=== PATIENT | female | born 1980 ===

== ENCOUNTER → 2019-12-18 | Outpatient (CLI) | payer OTHER ==
[~2019-12-18] MED LIST: CYCL10 PO; DIPH50; HYDACE5 PO; IBUP800 PO; NAPR500 PO; Percocet 5-3251 EACH PO; RXCYCL10 PO; Verotin-Gr Cap1 EACH PO
[2019-12-20 01:09] LABS: CHLAMYDIA TRACHOMATIS, NAA Negative (Negative); NEISSERIA GONORRHOEAE, NAA Negative (Negative)
== END | disposition home or self-care (01) ==
LOC: LAB 10:42 → LAB SHORT 10:42
PROVIDERS: Obstetrics & Gynecology
DX: O09.523 Supervision of elderly multigravida, third trimester (principal); Z3A.36 36 weeks gestation of pregnancy
CPT/HCPCS: 87081; 87491; 87591; 87653

== ENCOUNTER 2019-12-31 02:09 | Inpatient (IN) | payer OTHER ==
[~2019-12-31] VITALS: Ht 165.1 cm; Wt 90.0 kg
[2019-12-31] MEDS ORDERED: LABE100 PO (02:57)
[2019-12-31] MEDS ORDERED: ACYC400 PO (02:59)
[2019-12-31 03:29] LABS: BASOPHILS ABSOLUTE AUTO 0.05 K/mm3 (0.00-0.23); BASOPHILS PERCENT AUTO 0 % (0-2); EOSINOPHILS ABSOLUTE AUTO 0.19 K/mm3 (0.00-0.68); EOSINOPHILS PERCENT AUTO 2 % (0-6); Hematocrit 35.1 % (33.0-51.0); Hemoglobin 11.4 g/dL (11.5-16.0); IMMATURE GRAN ABSOLUTE AUTO 0.04 K/mm3 (0.00-0.10); IMMATURE GRAN PERCENT AUTO 0 % (0-1); LYMPHOCYTES PERCENT AUTO 19 % (21-46); MONOCYTES ABSOLUTE AUTO 0.61 K/mm3 (0.16-1.47); MONOCYTES PERCENT AUTO 5 % (4-13); Mean Corpuscular HGB 28.6 pg (26.0-34.0); Mean Corpuscular HGB Conc 32.5 g/dL (31.5-36.5); Mean Corpuscular Volume 88 fL (80-100); Mean Platelet Volume 11.5 fL (9.1-12.4); NEUTROPHILS PERCENT AUTO 74 % (41-73); Platelet Count 176 K/mm3 (150-400); RDW Standard Deviation 45.3 fL (35.1-46.3); Red Blood Cell Count 3.98 M/mm3 (3.80-5.20); White Blood Cell Count 11.89 K/mm3 (4.00-11.30)
[2019-12-31 10:13] LABS: PCO2 Cord - Arterial 47.6 mmHg (40-50); PO2 Cord - Arterial 15.1 mmHg (16-20); pH Cord - Arterial 7.27 (7.28-7.35)
[2019-12-31 10:16] LABS: PCO2 Cord - Venous 39.9 mmHg (40-50); PO2 Cord - Venous 26.4 mmHg (28-32); pH Umbilical Cord - Venous 7.37 (7.26-7.35)
[2020-01-01 05:38] LABS: Hematocrit 37.3 % (33.0-51.0); Mean Corpuscular HGB Conc 32.2 g/dL (31.5-36.5); Mean Corpuscular Volume 90 fL (80-100); Mean Platelet Volume 11.1 fL (9.1-12.4); Platelet Count 195 K/mm3 (150-400); RDW Coefficient Variation 14.2 % (11.7-14.2); RDW Standard Deviation 46.5 fL (35.1-46.3); Red Blood Cell Count 4.14 M/mm3 (3.80-5.20); White Blood Cell Count 12.13 K/mm3 (4.00-11.30)
[2020-01-01] MEDS ORDERED: Percocet 5-3251 EACH PO (13:41)
[2020-01-01] MEDS ORDERED: IBUP800 PO (13:41)
--- NOTE | 2020-01-01 15:29 | NUR ---
DISCHARGE ISNTRUCTIONS GIVEN TO AND REVIEWED WITH PATIENT AND ALL QUESTIONS ANSWERED. PT WAS GIVEN WRITTEN PRESCRIPTIONS AND DENIES ANY FURTHER QUESTIONS/CONCERNS AT THIS TIME. ID BANDS WERE MATCHED WITH . PT BP WAS ELEVATED TO 151/38 @ 1355 AND 140/[address] @ [address] PATE NOTIFIED AND CLEARED TO GO HOME. RN INSTRUCTED PT TO CALL DR PATE IF EXPERIENCING ANY HEADACHE, BLURRY VISION OR NUMBNESS AND TINGLING.
== END 2020-01-01 15:35 | disposition home or self-care (01) | DRG 785 ==
LOC: OBS 02:09 → BC 02:11 → OBS 02:28 → BC 02:35
PROVIDERS: Family Medicine; ADMIT Obstetrics & Gynecology
PROC: 10D00Z1 Extraction of Products of Conception, Low, Open Approach (ICD-10-PCS; principal; 2019-12-31 10:00)
PROC: 0UT70ZZ Resection of Bilateral Fallopian Tubes, Open Approach (ICD-10-PCS; 2019-12-31 10:00)
DX: O34.211 Maternal care for low transverse scar from previous cesarean delivery (principal); Z37.0 Single live birth; Z3A.38 38 weeks gestation of pregnancy; O69.81X0 Labor and delivery complicated by cord around neck, without compression, not applicable or unspecified
CPT/HCPCS: 36415; 82803; 85025; 85027; 86850; 86900; 86901; J0690; J1885; J2370; J2405; J2590; J2765; J7120

== ENCOUNTER → 2021-02-13 | Outpatient (CLI) | payer OTHER ==
[~2021-02-13] MED LIST changes: +ACYC400 PO; +LABE100 PO
[2021-02-14 16:09] LABS: HPV 16 Negative (Negative); HPV 18 Negative (Negative); HPV OTHER HR TYPES Negative (Negative)
== END ==
LOC: LAB SHORT 16:09 → LAB 16:09
PROVIDERS: Obstetrics & Gynecology
DX: Z12.4 Encounter for screening for malignant neoplasm of cervix (principal)
CPT/HCPCS: 87624; G0123

== ENCOUNTER 2022-08-03 05:42 | Day surgery (SDC) | payer OTHER ==
[~2022-08-03] VITALS: Ht 165.1 cm; Wt 84.7 kg
[2022-08-03] MEDS ORDERED: LOSA25 PO (06:22)
[2022-08-03] MEDS ORDERED: ACYC800 PO (06:22)
--- NOTE | 2022-08-03 06:40 | NUR ---
Ambulatory in Day Surgery History, Chart, Medications and Allergies reviewed before start of procedure. Lungs clear anteriorly T/O to Auscultation. Pre-Op teaching done. Pt verbalizes understanding.
[2022-08-03] MEDS ORDERED: Percocet 5-3251 EACH PO (10:49)
--- NOTE | 2022-08-03 12:00 | NUR ---
PT ALERT AND AWAKE. SITTING UP AND EATING LUNCH. DENIES NAUSEA. DECLINES NEED FOR PAIN RX. FRANCISCO D/C. 600CC DRAINED. IV TO SL. PT DARCY POS WELL. PT INSTRUCTED TO NOT GET UP TO BRP WITHOUT ASSISTANCE. PT VERBALIZES UNDERSTANDING. ELPIDIO CARE DONE. SCANT RUB LOCHIA NOTED.
--- NOTE | 2022-08-03 12:42 | NUR ---
1235: PT C/O NAUSEA. DR. PATE UPDATED. ORDERED RECEIVED. PT GIVEN ZOFRAN. EMESIS OF 400CC NOTED.
--- NOTE | 2022-08-03 12:57 | NUR ---
PT DENIES PAIN AND NAUSEA.
--- NOTE | 2022-08-03 13:05 | NUR ---
PT RESTING. DESIRES TO NOT BE AWAKEN UNTIL NEXT SET OF VS DUE IN 1 HOUR. DENIES PAIN OR NAUSEA.
--- NOTE | 2022-08-03 14:10 | NUR ---
PT UP TO BRP. VOIDED. REPORTED FEELING LIGHT HEADED WHILE UP. PT QUICKLY R/T BED. SMALL AMOUNT OF LOCHIA NOTED. INCISIONS OOZING S/S FLUID. BANDAIDS SATURATED BUT NO CONTINUAL D/C NOTED. PT IN BED AND [id number] FEELING BETTER.
--- NOTE | 2022-08-03 14:31 | NUR ---
d/c instructions discussed and signed. pt has no questions or concerns. pt reports not feeling herself quite yet. expressed concerned the pain medication made her not feel well. pt reports pain 2-3/10. discussed it is time to use tordol if pt desires but pt declines at this time.
[2022-08-03 14:42] LABS: BASOPHILS ABSOLUTE AUTO 0.04 K/mm3 (0.00-0.23); BASOPHILS PERCENT AUTO 0 % (0-2); EOSINOPHILS PERCENT AUTO 0 % (0-6); Hematocrit 38.5 % (33.0-51.0); Hemoglobin 12.8 g/dL (11.5-16.0); IMMATURE GRAN ABSOLUTE AUTO 0.06 K/mm3 (0.00-0.10); IMMATURE GRAN PERCENT AUTO 0 % (0-1); LYMPHOCYTES ABSOLUTE AUTO 0.87 K/mm3 (0.84-5.20); LYMPHOCYTES PERCENT AUTO 5 % (21-46); MONOCYTES ABSOLUTE AUTO 0.23 K/mm3 (0.16-1.47); MONOCYTES PERCENT AUTO 1 % (4-13); Mean Corpuscular HGB 29.3 pg (26.0-34.0); Mean Corpuscular HGB Conc 33.2 g/dL (31.5-36.5); Mean Corpuscular Volume 88 fL (80-100); Mean Platelet Volume 10.1 fL (9.1-12.4); NEUTROPHILS ABSOLUTE AUTO 15.25 K/mm3 (1.96-9.15); NEUTROPHILS PERCENT AUTO 93 % (41-73); Platelet Count 237 K/mm3 (150-400); RDW Coefficient Variation 12.3 % (11.7-14.2); RDW Standard Deviation 40.2 fL (35.1-46.3); Red Blood Cell Count 4.37 M/mm3 (3.80-5.20); White Blood Cell Count 16.45 K/mm3 (4.00-11.30)
--- NOTE | 2022-08-03 15:48 | NUR ---
PT UP TO BRP. DARCY WELL. LOCHIA SCANT. BINDER APPLIED. PT DRESSED TO GO HOME. DECLINED TORDOL. PREFERS IBUPROFEN. IBUPROFEN GIVEN FOR PAIN PRIOR TO D/C. PT CALLED FOR RIDE. DESIRES TO GO HOME NOW.
--- NOTE | 2022-08-03 16:22 | NUR ---
1610: PT'S RIDE HERE. PT TO W/C TO GO HOME. PT REPORTS FEELING NAUSEATED BUT INSISTS ON GOING HOME. COLOR GOOD. PT BECOMES INCREASINGLY NAUSEATED AND NOT "FEELING WELL" R/T ROOM TO LAY DOWN. VS ASSESSED. INITIAL B/P ELEVATED. LEFT MESSAGE FOR DR. PATE TO CALL RN
--- NOTE | 2022-08-03 16:33 | NUR ---
UPDATE TO DR. PATE. DISCUSSED PT'S VS AND SYMPTOMS. NEW ORDERS RECEIVED. IF B/P WNL IN AN HOUR PT OKAY TO D/C HOME.
--- NOTE | 2022-08-03 16:34 | NUR ---
NEW SCRIPT OF ZOFRAN 4 MG PO Q 4H FOR NAUSEA X 20 TABLETS CALLED TO [facility]
--- NOTE | 2022-08-03 17:05 | NUR ---
UPDATE TO DR PATE. DISCUSSED PT'S VS. PT REPORTS SHE IS NOT SURE SHE TOOK HER LAST NIGHT DOSE OF [place]. ORDERS RECEIVED TO GIVE PT'S SCHEDULED DOSE NOW.
--- NOTE | 2022-08-03 17:40 | NUR ---
PT SLEEPING. AWAKEN FOR MEDS AND VS. PT REPORTS FEELING A MILD H/A. DECLINES NEED FOR ANY RX TO TREAT H/A OR PAIN. DARCY WELL. DENIES NAUSEA. NOT INTERESTED IN DINNER. PT REPORTS SHE DOESN'T FEEL LIKE EATING ANYTHING.
--- NOTE | 2022-08-03 17:45 | NUR ---
PT UP TO BRP. REPORTS FEELING SHAKEY. VOIDED. R/T BED WITH STAND BY ASSIST
--- NOTE | 2022-08-03 18:45 | NUR ---
UPDATE TO DR PATE. PT TO STAY THE NIGHT AND MAY D/C HOME WHEN SHE FEELS BETTER. NO FURTHER ORDERS FOR B/P.
--- NOTE | 2022-08-04 07:43 | NUR ---
PT AWAKE AND ALERT. REPORTS SHE FEELS GOOD. WOULD LIKE TO D/C HOME. DARCY POS WELL. DENIES PAIN. HERE TO PICK HER UP. PT GETTING UP TO GET READY TO GO HOME. PT DARCY SELF CARE WELL. LOCHIA SCANT. INCISIONS DRY AND INTACT. STERI STRIPS INTACT.
== END 2022-08-04 07:55 | disposition home or self-care (01) ==
LOC: ORSCMMR 05:42 → ORD 07:30 → BC 10:06 → ORSCMMR 08-04 07:55
PROVIDERS: Obstetrics & Gynecology
PROC: 0JQC0ZZ Repair Pelvic Region Subcutaneous Tissue and Fascia, Open Approach (ICD-10-PCS; principal; 2022-08-03 07:30)
PROC: 0UT9FZZ Resection of Uterus, Via Natural or Artificial Opening With Percutaneous Endoscopic Assistance (ICD-10-PCS; principal; 2022-08-03 07:30)
DX: N81.2 Incomplete uterovaginal prolapse (principal); N72 Inflammatory disease of cervix uteri; I10 Essential (primary) hypertension; Z79.899 Other long term (current) drug therapy
CPT/HCPCS: 36415; 85025; 88307; A9270; J0690; J1100; J1885; J2250; J2405; J2550; J2704; J3010; J7120